=== PATIENT | female | born 1985 ===

== ENCOUNTER 2024-10-30 10:45 | Inpatient (IN) | payer OTHER ==
[~2024-10-30] VITALS: Ht 152.4 cm; Wt 86.2 kg
[2024-10-30] MEDS ORDERED: ZESTRIL20 MG PO (12:34)
[2024-10-30] MEDS ORDERED: MESTINON60 MG PO (12:35)
[2024-10-30] MEDS ORDERED: TOPAMAX25 MG PO (12:35)
[2024-10-30 12:52] VITALS: BP 121/83
[2024-10-30 12:59] VITALS: BP 112/76
[2024-10-30 19:39] LABS: RH POSITIVE
[2024-11-05] MEDS ORDERED: METRONIDAZOLE/SODIUM CHLORIDE 500 MG/100 ML PIGGYBACK IV ONE ×2 (06:19→10:45)
[2024-11-05] MEDS ORDERED: CEFTRIAXONE SODIUM 2,000 MG VIAL ONE (06:19)
[2024-11-05] MEDS ORDERED: LIDOCAINE HCL 1%/EPINEPHRINE 20ML VIAL IJ ONE ×2 (06:20→10:45)
[2024-11-05] MEDS ORDERED: BUPIVACAINE HCL/Mpf 0.5% 10ML VIAL ONE (06:20)
[2024-11-05] MEDS ORDERED: PANTOPRAZOLE SO40 MG (09:26)
[2024-11-05] MEDS ORDERED: CEFTRIAXONE SODIUM 2,000 MG VIAL IV ONE (10:45)
[2024-11-05] MEDS ORDERED: BUPIVACAINE HCL 30 ML VIAL IJ ONE (10:45)
[2024-11-05] MEDS ORDERED: POVIDONE-IODINE 118 ML BOTT TOP ONE ×2 (10:45→11:13)
[2024-11-05] MEDS ORDERED: THROMBIN,HU/FIBRINOGEN/CALCIUM 10 ML SYRINGE TOP ONE ×2 (11:23→12:15)
[2024-11-05] MEDS ORDERED: VISTASEAL DUAL APPICATOR 1 EACH APPL TOP ONE ×2 (11:23→12:15)
[2024-11-05] MEDS ORDERED: MORPHINE SULFATE 4 MG/ML VIAL IV ONE (14:35)
[2024-11-05] MEDS ORDERED: RINGERS SOLUTION,LACTATED 1,000 ML IV SCH (14:40)
[2024-11-05] MEDS ORDERED: ONDANSETRON HCL 2 MG/ML VIAL IV SCH (14:40)
[2024-11-05] MEDS ORDERED: ACETAMINOPHEN 325 MG TABLET PO SCH (14:41)
[2024-11-05] MEDS ORDERED: GABAPENTIN 100 MG CAPSULE PO SCH (14:41)
[2024-11-05] MEDS ORDERED: CELECOXIB 200 MG CAPSULE PO STA (14:41)
[2024-11-05 15:24] LABS: BASO % 0.2 % (0.1-1.2); EOS # 0.07 (0.04-0.54); EOS % 0.5 % (0.7-7.0); HEMATOCRIT 40.6 % (34.1-44.9); HEMOGLOBIN 13.8 g/dL (11.2-15.7); LYMPH # 1.53 (1.18-3.74); MEAN CORPUSCULAR HEMOGLOBIN 29.7 pg (25.6-32.2); MONO # 0.51 (0.24-0.82); MONO % 3.7 % (4.7-12.5); NEUT # 11.67 (1.56-6.13); NEUT % 84.2 % (34.0-71.1); PLATELET COUNT 258 K/uL (163-369); RED BLOOD COUNT 4.64 M/uL (3.93-5.22)
[2024-11-05 16:00] VITALS: BP 121/83
[2024-11-05 18:54] LABS: BASO % 0.1 % (0.1-1.2); EOS # 0.02 (0.04-0.54); EOS % 0.1 % (0.7-7.0); HEMATOCRIT 39.9 % (34.1-44.9); HEMOGLOBIN 13.5 g/dL (11.2-15.7); LYMPH # 1.04 (1.18-3.74); LYMPH % 7.6 % (19.3-53.1); MEAN CORPUSCULAR HEMOGLOBIN 29.9 pg (25.6-32.2); MONO # 0.44 (0.24-0.82); MONO % 3.2 % (4.7-12.5); NEUT # 12.11 (1.56-6.13); NEUT % 88.6 % (34.0-71.1); PLATELET COUNT 259 K/uL (163-369); RED BLOOD COUNT 4.51 M/uL (3.93-5.22)
[2024-11-05 20:01] LABS: CALCIUM 8.4 mg/dL (8.5-10.1); CREATININE SERUM 0.63 mg/dL (0.55-1.02); GFR 104.66; POTASSIUM 3.98 mEq/L (3.5-5.1)
[2024-11-06 00:27] VITALS: BP 113/78
[2024-11-06 06:59] LABS: BASO % 0.3 % (0.1-1.2); EOS # 0.08 (0.04-0.54); EOS % 0.8 % (0.7-7.0); HEMATOCRIT 37.3 % (34.1-44.9); HEMOGLOBIN 12.6 g/dL (11.2-15.7); LYMPH # 1.92 (1.18-3.74); LYMPH % 18.9 % (19.3-53.1); MEAN CORPUSCULAR HEMOGLOBIN 29.6 pg (25.6-32.2); MONO # 0.61 (0.24-0.82); NEUT # 7.51 (1.56-6.13); NEUT % 73.7 % (34.0-71.1); PLATELET COUNT 199 K/uL (163-369); RED BLOOD COUNT 4.25 M/uL (3.93-5.22); RED CELL DISTRIBUTION WIDTH 12.8 % (11.6-14.4)
[2024-11-06 07:12] LABS: CALCIUM 8.5 mg/dL (8.5-10.1); CREATININE SERUM 0.6 mg/dL (0.55-1.02); GFR 110.72; POTASSIUM 4.02 mEq/L (3.5-5.1)
[2024-11-06 07:54] VITALS: BP 107/76
== END 2024-11-06 11:14 | disposition home or self-care (01) | DRG 743 ==
LOC: O/R 11-05 08:08 → OB/GYN 11-05 08:08 → SURH 11-05 10:45 → OB/GYN 11-05 15:30
PROVIDERS: Surgery; Urology; ADMIT Obstetrics & Gynecology Gynecology; ATTEND Obstetrics & Gynecology Gynecology
PROC: 0DTJ4ZZ Resection of Appendix, Percutaneous Endoscopic Approach (ICD-10-PCS; 2024-11-05)
PROC: 0T784DZ Dilation of Bilateral Ureters with Intraluminal Device, Percutaneous Endoscopic Approach (ICD-10-PCS; 2024-11-05)
PROC: 0UT94ZZ Resection of Uterus, Percutaneous Endoscopic Approach (ICD-10-PCS; principal; 2024-11-05 12:30)
PROC: 0UT74ZZ Resection of Bilateral Fallopian Tubes, Percutaneous Endoscopic Approach (ICD-10-PCS; 2024-11-05 12:30)
PROC: 0TNB4ZZ Release Bladder, Percutaneous Endoscopic Approach (ICD-10-PCS; 2024-11-05 12:30)
DX: N80.03 Adenomyosis of the uterus (principal); N94.6 Dysmenorrhea, unspecified; N72 Inflammatory disease of cervix uteri; K66.0 Peritoneal adhesions (postprocedural) (postinfection); N80.9 Endometriosis, unspecified